=== PATIENT | female | born 1970 | race Caucasian/White ===

== ENCOUNTER → 2019-12-25 14:28 | Outpatient (CLI) | payer MEDICAID, SELFPAY ==
[2019-12-24 13:28] VITALS: BMI 26.4
--- NOTE | 2019-12-25 14:38 | MRI_ITS ---
STUDY: MRI BRAIN WITH AND WITHOUT CONTRAST REASON FOR EXAM: Female, 49 years old. new daily persistent headaches R occipital area, small cell lung ca TECHNIQUE: Standardized multiplanar fat and water weighted pulse sequences were obtained. IV 15 cc dotarem was administered for the contrast portion of the examination. COMPARISON: None. FINDINGS: There is mild cerebral atrophy with widening of the extra-axial spaces and ventricular dilatation. There are multiple white matter hyperintensities, distributed throughout the deep white matter tracts of the cerebral hemispheres, consistent with moderate chronic white matter ischemic changes. There is no evidence for recent intracranial ischemia or other cause of cytotoxic edema on diffusion weighted imaging (DWI). Normal T2* images of the brain without demonstrated susceptibility artifact. There is no demonstrated hemosiderin stain. Normal bilateral basal ganglia. Normal thalami. There is no extra-axial fluid accumulation. Normal flow voids within the major intracranial circulation suggesting patency by spin echo criteria. Normal venous enhancement. There is no enhancing intra-axial or extra-axial abnormality. Normal sella turcica, pituitary gland, infundibular stalk, optic chiasm and hypothalamus. Normal tectal plate and pineal gland. Normal midbrain, mahsa and medulla. Normal cerebellum. Normal basal cisterns. Normal bilateral temporal bones. Normal bilateral internal auditory canals. No demonstrated orbital abnormality, within the constraints of a routine brain study. Normal visualized paranasal sinuses. Normal calvarium and skull base. Normal visualized soft tissue structures. Normal visualized upper cervical spine. MRI/Brain W/WO Contrast IMPRESSION: Involutional changes of the brain, as described above. Electronically Signed: Samson Iyer MD at 17:14 EDT Tel , Service support ,
== END ==
PROVIDERS: Referring Provider Internal Medicine Hematology & Oncology; Visit Provider Internal Medicine Hematology & Oncology
DX: C34.92 Malignant neoplasm of unspecified part of left bronchus or lung (principal); C77.9 Secondary and unspecified malignant neoplasm of lymph node, unspecified; G44.52 New daily persistent headache (NDPH)
CPT/HCPCS: 70553; A9575

== ENCOUNTER 2020-02-05 14:50 | Emergency (ER) | payer MEDICAID, SELFPAY ==
[2019-12-24 13:28] VITALS: BMI 26.4
[2020-02-05] VITALS (10 sets, daily range): BP systolic 104–136; BP diastolic 75–97; PULSE 91–127; RESP 18–28; TEMP 36.1–37; O2SAT 96–98; BMI 32.1
--- NOTE | 2020-02-05 15:15 | RAD_ITS ---
STUDY: X-RAY CHEST REASON FOR EXAM: Female, 49 years old. PT C/O SOB AND COUGH THAT STARTED 4-5 DAYS AGO. TECHNIQUE: AP portable COMPARISON: None. FINDINGS: There are patchy areas of increased density and interstitial thickening in the right lower lobe possibly due to atypical viral pneumonia.. There is loss of volume in left hemithorax which appears to be in part due to left pleural effusion and perihilar interstitial thickening possibly representing interstitial infiltrate or edema. Normal size heart. Normal mediastinum and susanne. Normal visualized pulmonary arteries. Normal visualized aortic arch and descending thoracic aorta. Normal visualized thoracic spine. Normal visualized ribs, clavicles, and shoulders. Nonspecific bowel distention likely representing ileus in the upper abdomen. RAD/Chest 1 View (Portable) IMPRESSION: Interstitial thickening with increased parenchymal density in the right lower lobe and to a lesser extent in the upper lobe possibly due to Covid 19 pneumonia. Clinical correlation is recommended in this regard Left pleural effusion and possible perihilar interstitial thickening CT would be helpful for further evaluation Electronically Signed: Solomon Wilkins MD at 16:55 EST , Service support ,
--- NOTE | 2020-02-05 15:16 | ED.VIS.GEN ---
History of Present Illness Chief Complaint: Shortness of Breath Narrative: This patient is a 49-year-old female who presents with shortness of breath and cough. She has been ill for about 4 to 5 days. She complains of productive cough. She states she feels rattling in the left side of her chest. She also complains of congestion and sore throat. She intermittently has chest pain although no chest pain currently. She does complain of muscle and joint aches especially in the neck and shoulder. She reports diarrhea. No abdominal pain nausea or vomiting. She has not had a fever. No known exposure to COVID-19. She does have a history of small cell lung cancer and underwent radiation and chemotherapy but has been in remission for 2 years. She denies any other medical history. She is a smoker. Past Medical History - Allergies and Home Meds Allergies/Adverse Reactions: Allergies No Known Allergies Allergy (Verified 02/05/20 14:51) Primary Care Physician: Care Physician,No Primary [Primary Care Provider] - Past Medical History: - - Small cell lung cancer, in remission Surgical History: noncontributory Smoking Status: Current every day smoker - Family History Maternal Family History: Family History (Last Reviewed 12/24/19 @ 12:55 by Evy Turcios) Mother Lung cancer Osteoarthritis Father Diabetes Family History: Reports: Unknown Paternal Family History: Family History (Last Reviewed 12/24/19 @ 12:55 by Evy Turcios) Mother Lung cancer Osteoarthritis Father Diabetes Family History: Reports: Unknown Review of Systems All systems negative except as indicated General: Denies: Fever Eyes: Denies: Visual changes - bilaterally ENT: Denies: Bilateral ear pain Cardiovascular: Reports: Chest pain Respiratory: Reports: Dyspnea, Cough, Sputum Gastrointestinal: Reports: Diarrhea. Denies: Abdominal pain, Nausea, Vomiting Musculoskeletal: Reports: Myalgias, Arthralgias Skin: Denies: Rash Neurological: Reports: Headache Hematologic: Denies: Easy bruising, Easy bleeding Physical Exam Vital Signs/Narrative: Vital Signs Temp Pulse Resp BP Pulse Ox 02/05/20 14:51 97.0 F L 127 H 24 H 104/77 97 Inital Vital Signs reviewed: Yes General: Well nourished Head: Normocephalic Eyes: EOMI ENT: Moist mucous membranes Neck: Supple Cardiovascular: Regular rhythm, Tachycardia Respiratory: Wheezing, Decreased Air Movement, - - Tachypnea. Negative for: Rales Abdomen: Soft, Nontender, Nondistended Extremities: Nontender Skin: Normal color Neurological: Alert Psychological: Normal affect Diagnostic/Tx/Re-eval Impressions Chest X-Ray 02/05/20 15:15 IMPRESSION: Interstitial thickening with increased parenchymal density in the right lower lobe and to a lesser extent in the upper lobe possibly due to Covid 19 pneumonia. Clinical correlation is recommended in this regard Left pleural effusion and possible perihilar interstitial thickening CT would be helpful for further evaluation Electronically Signed: Solomon Wilkins MD at 16:55 EST , Service support , 02/05/20 15:15 Chest 1 View (Portable) [RAD] Stat 02/05/20 17:45 CTA Chest W/WO Contrast [CT] Stat 02/05/20 17:55 Mucosa - Nose Influenza Types A,B Direct FA (ELVER) - Final 02/05/20 15:55 Mucosa - Nose SARS-CoV-2 Antigen (Rapid) - Final Laboratory Results 02/05/20 02/05/20 02/05/20 15:50 15:50 15:50 WBC 8.8 RBC 4.52 Hgb 13.4 Hct 42.4 MCV 93.8 MCH 29.6 MCHC 31.6 L RDW Std Deviation 45.1 H RDW Coeff of Yoko 13.2 Plt Count 282 MPV 9.4 Immature Gran % (Auto) 0.300 Neut % (Auto) 70.7 H Lymph % (Auto) 20.8 [place] % (Auto) 6.1 Eos % (Auto) 1.8 Baso % (Auto) 0.3 Absolute Neuts (auto) 6.2 Absolute Lymphs (auto) 1.83 Nucleated RBC % 0 D-Dimer Quant (PE/DVT) 0.82 H* Sodium 140 Potassium 3.8 Chloride 110 H Carbon Dioxide 28.0 Anion Gap 2 L BUN 11 Creatinine 0.74 Estim Creat Clear Calc 69.39 Est GFR (MDRD) Af Amer 108 Est GFR (MDRD) Non-Af 89 BUN/Creatinine Ratio 15.0 Glucose 99 Lactic Acid Calcium 8.9 Total Bilirubin 0.30 AST 10 L ALT 17 Alkaline Phosphatase 147 H Total Protein 7.7 Albumin 3.8 Globulin 3.9 Albumin/Globulin Ratio 1.0 02/05/20 15:50 WBC RBC Hgb Hct MCV MCH MCHC RDW Std Deviation RDW Coeff of Yoko Plt Count MPV Immature Gran % (Auto) Neut % (Auto) Lymph % (Auto) [place] % (Auto) Eos % (Auto) Baso % (Auto) Absolute Neuts (auto) Absolute Lymphs (auto) Nucleated RBC % D-Dimer Quant (PE/DVT) Sodium Potassium Chloride Carbon Dioxide Anion Gap BUN Creatinine Estim Creat Clear Calc Est GFR (MDRD) Af Amer Est GFR (MDRD) Non-Af BUN/Creatinine Ratio Glucose Lactic Acid 0.9 Calcium Total Bilirubin AST ALT Alkaline Phosphatase Total Protein Albumin Globulin Albumin/Globulin Ratio - Medical Decision Making EKG shows sinus tachycardia at a rate of 104. Labs returned essentially unremarkable except for a D-dimer of 0.82. Chest x-ray shows findings concerning for possible bilateral pneumonia or COVID-19. The initial Covid antigen test returned negative. However given high clinical suspicion of Covid I did order a Covid PCR. Influenza was also negative. Due to elevated D-dimer and abnormal chest x-ray with radiology recommending consideration of CT patient was sent for a CTA of the chest. This is pending at the time of this dictation. Patient was given IV Rocephin and azithromycin. I was notified by nursing that patient refuses to wait any longer. I discussed with her that she has bilateral pneumonia and we have been unable to rule out COVID-19 or a pulmonary embolism. I recommended that she stay to complete evaluation and actually would recommend hospitalization. Patient refuses. She understands the risks of worsening of condition, organ failure, permanent disability, . Patient elected to sign out AGAINST MEDICAL ADVICE. We will still treat with oral antibiotics. She was advised that she needs to quarantine. ED Disposition - Plan for ED Patient: Disposition: Home or Assisted Living Diagnosis: Bilateral pneumonia, Elevated d-dimer Instructions: Pneumonia, D-Dimer Prescriptions: levoFLOXacin tablet [Levaquin] 500 mg PO DAILY #7 tab Prescription Printed Referrals: Care Physician,No Primary [Primary Care Provider] -
--- NOTE | 2020-02-05 15:18 | EKG12_ITS ---
Test Reason : SOB Blood Pressure : / mmHG Vent. Rate : 104 BPM Atrial Rate : 104 BPM P-R Int : 150 ms QRS Dur : 086 ms QT Int : 346 ms P-R-T Axes : 042 096 086 degrees QTc Int : 454 ms Sinus tachycardia Otherwise normal ECG Confirmed by LUZ MARIA LEE, MANJEET ([id number]), publications editor PEPPER GUTIERREZ ([id number]) on 02/07/2020 11:08:16 AM Referred By: ZACHERY Confirmed By:MANJEET LOERA MD
[2020-02-05] MEDS: Ipratropium/Albuterol Sulfate 3 ML AMPUL.NEB INHALATION (15:49)
[2020-02-05] MEDS: Albuterol 2.5 MG/3 ML VIAL.NEB. INHALATION (15:49)
[2020-02-05 16:07] LABS: Absolute Lymphocyte Count 1.83 X10^3/uL (0.83-4.51); Absolute Neutrophil Count 6.2 X10^3/uL (2.0-7.7); Basophil# 0.03 X10^3/uL; Basophil% 0.3 % (0-1); Eosinophil# 0.16 X10^3/uL; Eosinophils% 1.8 % (0-5); Hematocrit 42.4 % (37-47); Hemoglobin 13.4 g/dL (12.0-15.0); Lymphocyte # 1.83 X10^3/ul (4.0); Lymphocyte % 20.8 % (19-41); Mean Corp Hgb Conc 31.6 g/dL (32-36); Mean Corpuscular Hgb 29.6 pg (27.0-32.0); Mean Corpuscular Volume 93.8 fL (81-99); Mean Platelet Vol. 9.4 fl (6.2-12.0); Monocyte# 0.54 X10^3/uL; Monocyte% 6.1 % (0-10); NRBC Flagged by Analyzer 0 % (0-5); Neutrophil # 6.21 X10^3/uL (2.7-7.7); Neutrophil % 70.7 % (47-70); Platelet Count 282 K/mm3 (150-450); RBC Distribution Width CV 13.2 % (11.6-14.6); RBC Distribution Width SD 45.1 fl (35.1-43.9); Red Blood Count 4.52 M/mm3 (4.2-5.4); White Blood Count 8.8 K/mm3 (4.4-11.0)
[2020-02-05 16:24] LABS: AST(SGOT) 10 U/L (15-37); Alanine Aminotransfer ALT/SGPT 17 U/L (13-56); Albumin, Serum 3.8 g/dL (3.2-5.0); Alkaline Phosphatase 147 U/L (45-117); Anion Gap 2 (5-15); BUN 11 mg/dL (7-18); Calcium,Total 8.9 mg/dL (8.5-10.1); Chloride 110 mmol/L (98-107); Creatinine, Serum 0.74 mg/dL (0.55-1.02); EST Glomerular Filtration Rate 89 mL/min (>60); Est Glom Filt Rate - Afr Amer 108 mL/min (>60); Estimated Creatinine Clearance 69.39 ml/min; Globulin 3.9 g/dL (2.2-4.2); Glucose 99 mg/dL (74-106); Potassium 3.8 mmol/L (3.5-5.1); Protein, Total 7.7 g/dL (6.4-8.2); Sodium Level 140 mmol/L (136-145)
[2020-02-05 16:43] LABS: Lactic Acid 0.9 mmol/L (0.4-1.9)
[2020-02-05 17:39] LABS: D-Dimer Quantitative (DVT/PE) 0.82 FEU/ug/m (0.27-0.49)
--- NOTE | 2020-02-05 17:45 | CT_ITS ---
STUDY: CTA CHEST REASON FOR EXAM: Female, 49 years old. SOB and cough x 5 days, COVID, hx small cell lung cancer, with radiation and amp; chemotherapy. RADIATION DOSAGE (If Supplied By Facility): CTDIvol = ( 10.07 ) mGy, DLP = ( 310.73 ) mGycm TECHNIQUE: The examination was performed with the intravenous administration of IV 100mL Isovue-370. Post-processing of the angiographic images was performed, with multiplanar reformation and 3D reconstruction. Individualized dose optimization techniques were used for this CT. COMPARISON: None. FINDINGS: Normal enhancement of the main pulmonary artery and right and left pulmonary arteries. Normal enhancement of the bilateral peripheral pulmonary arteries. There is no demonstrated pulmonary embolism. Normal thoracic aorta and visualized great vessels. There is no demonstrated aortic dissection. Normal heart and pericardium. Normal mediastinum. Normal hilar regions. Normal visualized trachea and bronchi. There is volume loss in the left hemithorax with left upper lobe consolidation and pleural effusion, possibly loculated. Mild patchy groundglass densities most significant in the right lung base. Normal pleura. Normal chest wall structures. Normal osseous structures. Normal visualized upper abdomen. CT/CTA Chest W/WO Contrast IMPRESSION: No demonstrated pulmonary embolism or arterial dissection. There is volume loss in the left hemithorax with left upper lobe consolidation and pleural effusion, possibly loculated. Mild patchy groundglass densities most significant in the right lung base. Electronically Signed: Gonzalo Gould DO at 20:47 EST Tel [phone], Service support ,
[2020-02-05] MEDS: Ceftriaxone 1 GM/50 ML BAG IV (18:21)
== END 2020-02-05 19:21 | disposition left against medical advice (07) ==
PROVIDERS: Emergency Provider Emergency Medicine
DX: J18.9 Pneumonia, unspecified organism (principal); R79.89 Other specified abnormal findings of blood chemistry; R19.7 Diarrhea, unspecified; F17.200 Nicotine dependence, unspecified, uncomplicated; Z85.118 Personal history of other malignant neoplasm of bronchus and lung; Z92.3 Personal history of irradiation; Z92.21 Personal history of antineoplastic chemotherapy
CPT/HCPCS: 71045; 71275; 80053; 83605; 85025; 85379; 87040; 87426; 87635; 87804; 93005; 94640; 96365; 99285; J7050; Q9967; A4216; U0002

== ENCOUNTER 2020-02-07 19:18 | Emergency (ER) | payer MEDICAID, SELFPAY ==
[2020-02-05 14:51] VITALS: BMI 32.1
[2020-02-07 19:19] VITALS: BP 148/103; PULSE 122; RESP 24; TEMP 36.6; O2SAT 97; BMI 32.1
--- NOTE | 2020-02-07 19:36 | EKG12_ITS ---
Test Reason : SOB Blood Pressure : / mmHG Vent. Rate : 107 BPM Atrial Rate : 107 BPM P-R Int : 156 ms QRS Dur : 084 ms QT Int : 350 ms P-R-T Axes : 039 101 077 degrees QTc Int : 467 ms Sinus tachycardia Rightward axis Borderline ECG Confirmed by LUZ MARIA LEE, MANJEET ([id number]), publication editor PEPPER GUTIERREZ ([id number]) on 02/11/2020 9:11:35 AM Referred By: KATERIN AJ Confirmed By:MANJEET LOERA MD
[2020-02-07 20:04] LABS: Absolute Lymphocyte Count 1.88 X10^3/uL (0.83-4.51); Absolute Neutrophil Count 6.8 X10^3/uL (2.0-7.7); Basophil# 0.03 X10^3/uL; Basophil% 0.3 % (0-1); Eosinophils% 2.1 % (0-5); Hematocrit 40.1 % (37-47); Hemoglobin 13.2 g/dL (12.0-15.0); Lymphocyte # 1.88 X10^3/ul (4.0); Lymphocyte % 19.7 % (19-41); Mean Corp Hgb Conc 32.9 g/dL (32-36); Mean Corpuscular Volume 91.1 fL (81-99); Mean Platelet Vol. 9.6 fl (6.2-12.0); Monocyte# 0.58 X10^3/uL; Monocyte% 6.1 % (0-10); NRBC Flagged by Analyzer 0 % (0-5); Neutrophil # 6.82 X10^3/uL (2.7-7.7); Neutrophil % 71.5 % (47-70); Platelet Count 279 K/mm3 (150-450); RBC Distribution Width CV 13.1 % (11.6-14.6); RBC Distribution Width SD 43.8 fl (35.1-43.9); White Blood Count 9.5 K/mm3 (4.4-11.0)
[2020-02-07 20:07] VITALS: PULSE 106; RESP 16
--- NOTE | 2020-02-07 20:10 | RAD_ITS ---
STUDY: X-RAY CHEST REASON FOR EXAM: Female, 49 years old. COMPLAINS OF WORSENING DYSPNEA, COUGH. HERE 02/04 FOR SAME, DIAGNOSED WITH BILATERAL PNEUMONIA, SIGNED OUT AMA PER PT. HX OF SMALL CELL LUNG CA, IN REMISSION TECHNIQUE: 1 view COMPARISON: Prior chest radiograph of 02/05/[address] of 02/05/2020 FINDINGS: The right lung remains generally hyperexpanded without infiltrates visible on chest radiography. Minimal ground glass infiltrates were present on chest CT of February 05. Stable findings on the left with collapse and consolidation of the left upper lobe and general retraction of the left lower lobe without new consolidation. Negative for pleural effusion. Cardiac borders are obscured. Normal right hilum. Normal right pulmonary arteries. Normal visualized aortic arch and descending thoracic aorta. Normal visualized thoracic spine. Normal visualized ribs, clavicles, and shoulders. There is no demonstrated abnormality of the visualized soft tissue structures of the upper abdomen. RAD/Chest 1 View (Portable) IMPRESSION: Stable appearance of the chest. Hyperexpansion of the right lung without visible infiltrates on chest radiography. Note that small groundglass infiltrates were demonstrated on prior CT exam. Stable findings on the left with collapse and consolidation of left upper lobe and retraction of the left lower lobe without new infiltrates. Negative for substantial pleural effusion. Electronically Signed: Kathia Gonzalez MD at 20:49 EST , Service support ,
[2020-02-07] MEDS: 0.9% Normal Saline 1,000 ML 150 ML IV (20:12)
[2020-02-07] MEDS: MethylPREDNISolone 125 MG/2 ML Vial IV (20:12)
[2020-02-07 20:30] LABS: Anion Gap 6 (5-15); BUN 21 mg/dL (7-18); BUN/Creat Ratio 22.3 RATIO (10-20); Calcium,Total 9.2 mg/dL (8.5-10.1); Chloride 111 mmol/L (98-107); Creatinine, Serum 0.94 mg/dL (0.55-1.02); EST Glomerular Filtration Rate 67 mL/min (>60); Est Glom Filt Rate - Afr Amer 81 mL/min (>60); Estimated Creatinine Clearance 54.63 ml/min; Glucose 99 mg/dL (74-106); Potassium 3.6 mmol/L (3.5-5.1); Sodium Level 141 mmol/L (136-145)
[2020-02-07 20:33] LABS: Lactic Acid 0.9 mmol/L (0.4-1.9)
[2020-02-07 20:59] VITALS: BP 118/89; PULSE 111; RESP 24; TEMP 36.6; O2SAT 95
--- NOTE | 2020-02-07 21:00 | ED.DCSUM_ITS ---
- ER Visit Summary Date of Service: 02/07/20 Chief Complaint: [Shortness of breath] History of Present Illness: The patient is a 49 F [presents to the emergency department complaint shortness of breath that started out a week ago. Patient had a cough and some sputum production. She was seen in the ER 2 days ago and had significant work-up and was diagnosed with bilateral pneumonia and was recommended admission. Patient refused admission and signed out AMA. Patient was started on antibiotics for home. She apparently also had a CTA of the chest to rule out PE however she left prior to her results returning. Patient states that overall she is feeling improved however she was really concerned that she might have a blood clot and so she returned back to the emergency department. She denies any fever recently. She does complain of cough with some sputum but she states the sputum is become more clear. Patient has history of prior lung cancer as well as emphysema and history of coronary artery disease. Patient also had COVID-19 testing initially she had the rapid test that was negative fol lowed by the PCR test that was also -2 days ago.] No COVID-19 exposures. Physical Examination: [HEENT-PERRLA, EOMI. Cranial nerves II through XII grossly intact. TMs clear. Mucous membranes moist. No adenopathy. Cardiovascular-regular with mild tachycardia, without murmur or ectopy Lungs-good aeration bilaterally. Patient has some pain expiratory wheezes. She has mild tachypnea. No accessory muscle use or retractions. No conversational dyspnea. Abdomen-normoactive bowel sounds, soft, nontender, no rebound or rigidity, no peritoneal signs. Extremities-intact ?4, normal range of motion, normal pulses, atraumatic] Test Results: [EKG obtained arrival shows sinus rhythm with a ventricular rate of 107 bpm. CBC with it showing a 9.5, hemoglobin 13, hematocrit 40, placed 279. Chemistries unremarkable. Troponin was less than 0.015. Lactate was normal at 0.9. Chest x-ray obtained and read by radiology as no interval change when compared with chest x-ray from 2 days ago. No significant infiltrates noted in the right lung and she did have some collapse of the left lung with questionable infiltrate in left upper lobe.] Emergency Department Course and Treatment: [Initially on arrival patient had an IV line established and patient was given albuterol MDI. Patient was given Solu-Medrol 125 mg IV.] Treatment Plan: [At this point patient is feeling improved overall her main concern was that she might have a pulmonary embolism. I do not feel that patient is septic and do not feel she needs to be admitted at this time. She is comfortable with going home and returning if her symptoms should worsen in any way. Patient to follow-up with her primary care physician within next 3 to 5 days.] Disposition: [Discharged home in stable condition] Impression: [Pneumonia] This note was generated with Stage[employer] dictation software. It may contain incorrect words, spelling, and punctuation that were not noted in review of the chart prior to signing ED Disposition - Plan for ED Patient: Referrals: Care Physician,No Primary [Primary Care Provider] -
--- NOTE | 2020-02-07 21:06 | ED.DEP ---
ED Disposition - Plan for ED Patient: Instructions: Treating Pneumonia, ED Upper Resp Infec Abx Tx Prescriptions: Benzonatate [Tessalon Perle] 200 mg PO TID PRN PRN #20 cap PRN Reason: Cough Prescription Printed Referrals: Care Physician,No Primary [Primary Care Provider] - Jordan Aguilera MD [STAFF PHYSICIAN] - 3-5 Days
[2020-02-07 21:18] VITALS: BP 122/86; PULSE 110; RESP 22; O2SAT 96
== END 2020-02-07 21:19 | disposition home or self-care (01) ==
LOC: ED 19:41
PROVIDERS: Emergency Provider Emergency Medicine
DX: J18.9 Pneumonia, unspecified organism (principal); J43.9 Emphysema, unspecified; I25.10 Atherosclerotic heart disease of native coronary artery without angina pectoris; Z72.0 Tobacco use; Z79.899 Other long term (current) drug therapy; Z85.118 Personal history of other malignant neoplasm of bronchus and lung
CPT/HCPCS: 71045; 80048; 83605; 84484; 85025; 87040; 93005; 96361; 96374; 99285; J7030; A4216

== ENCOUNTER → 2020-03-03 09:52 | Outpatient (CLI) | payer MEDICAID, SELFPAY ==
[2019-12-23 08:42] VITALS: BMI 32.3
--- NOTE | 2020-01-21 09:00 | HP_ITS ---
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: No Is patient in pain?: No Allergies No Known Allergies Allergy (Verified 12/23/19 08:44) Medications cholecalciferol (vitamin D3) 50 mcg (2,000 unit) capsule 50 mcg PO DAILY 12/23/19 [History Confirmed 12/23/19] [facility] Medical History Small cell lung cancer (Acute) Mass of left lung (Acute) Cocaine abuse (Chronic) Depression (Chronic) Shoulder strain (Chronic) NSTEMI (non-ST elevation myocardial infarction) (Acute) Non-ST elevation myocardial infarction (NSTEMI) greater than eight weeks ago (Acute) Acute renal failure (ARF) (Acute) Rhabdomyolysis (Acute) Critical lower limb ischemia (Suspected) Anoxic cerebral edema (Suspected) Shock liver (Acute) Pancreatitis, acute (Acute) Unresponsiveness (Acute) Difficulty breathing (Acute) Cancer of left lung (Chronic) Regional lymph node metastasis present (Chronic) Emphysema lung (Chronic) Surgical History s/p port placement (Acute) History of tonsillectomy and adenoidectomy (Acute) History of surgery on right wrist (Acute) Hx of laparoscopy (Acute) Hx of lumbar discectomy (Acute) History of left below knee amputation (Acute) H/O tubal ligation (Acute) Hx of colonoscopy (Acute) Family History Mother Lung cancer Osteoarthritis Father Diabetes Social History (Updated 12/23/19 @ 08:[address] Wang Rizzo MD) Smoking Status: Light Smoker (<10/day) alcohol intake: never substance use type: does not use caffeine: Yes what type of physical activity do you participate in: none frequency: does not exercise HPI HPI HPI: ZEESHAN PULIDO, is a 49 F who presents to the office today for HPI HPI Surgical H&P: Yes HPI: ZEESHAN PULIDO, is a 49 F who presents to the office today for Port removal and screening colonoscopy. The patient had a port placed in 2018 for lung cancer and is no longer using it and would like it removed it. It is in the right chest utilizing right IJ. Patient also reports her last colonoscopy was in 2004. She is not having any abdominal pain or blood in the stool. She has no family history of colon cancer. ROS General General: No weight change, appetite, fatigue, colon cancer, breast cancer or weakness HEENT HEENT: No difficulty swallowing, eye injury, eye surgery, swollen glands or hoarseness Skin Skin: No rash or changing moles Breast Breast: No left breast lump, right breast lump, nipple discharge, breast pain, abnormal mammogram, abnormal US or breast enlargement Musc Musculoskeletal: Yes joint pain; no back problems, arthritis, rheumatoid arthritis or gout Cardio Cardiovascular: No murmur, pacemaker, heart disease, atrial fibrillation, high blood pressure, heart attack, heart stent, palpitations, shortness of breat with exertion or chest pain Psych Psychiatric: Yes anxiety; no depression or hearing voices Resp Respiratory: Yes shortness of breath, No sleep apnea, No cough, No COPD, No asthma, No emphysema, No wheezing Gastro Gastrointestinal: No abdominal pain, No nausea or vomiting, No diarrhea, No constipation, No blood in stool, No acid reflux, No hemorrhoids, No ulcers, No gallbladder problem, No black,tarry stools Horace Hematologic: No blood thinners, No blood disorders, No bleeding, No anemia, No blood clots Neuro Neurologic: No system reviewed and no additional complaints, except as docu, No as per HPI, No abnormal walking, No abnormal hearing, No abnormal movements, No abnormal speech, No behavioral changes, No burning sensations, No confusion, No seizure-like activity, No unsteadiness, No dizziness, No localized weakness, No frequent falls, No headache(s), No lack of coordination, No loss of vision, No memory loss, No numbness, No other visual disturbances, No radiating pain, No restless legs, No sensory deficit, No fainting, No tingling, No tremor(s), No weakness, No other Exam Const General: cooperative Orientation: alert, oriented x3 Chest Breast Palpation: No nipple discharge Resp Effort & Inspection: normal respiratory effort Auscultation: clear to auscultation bilaterally Cardio Rate: regular rate Rhythm: regular rhythm Heart Sounds: no murmurs GI Inspection: non-distended Palpation: soft, nontender Assessment & Plan Problems 1. Encounter for adjustment or management of vascular access device Z45.2 2. Screen for colon cancer Z12.11 Plan I discussed port placement with the patient in detail. I will perform the procedure in the office. I discussed the risks including but not limited to bleeding, infection. Patient understands the risks and is willing to proceed with port removal. I will have her schedule a procedure time. Patient is overdue for colonoscopy for screening purposes. Her last colonoscopy was in 2004. She denies any abdominal pain or family history of colon cancer. Plan for screening colonoscopy. I explained endoscopy in detail to the patient. I explained the risks including but not limited to stroke or heart attack with anesthesia, perforation of the GI tract, bleeding, infection. I explained that any of these could necessitate further emergency surgery. The patient understands and all questions were answered sufficiently. The patient wishes to proceed with procedure. We discussed the current risks associated with COVID-19. While it is understood that there is a community spread of COVID-19, the risk of kareen COVID-19 while at [facility] ([facility]) is very low; however, the risk cannot be completely mitigated because of the community spread of the disease. We discussed in detail the risk of exposure to and/or potential harm posed by the COVID-19 virus with having a surgery/procedure at this time versus the risk of delaying the surgery/procedure. It is not possible to know either the risk of delaying the surgery or procedure or chance of getting an infection with perfect accuracy, but a joint decision was made to proceed at this time with the scheduled surgery/procedure as indicated on the consent form. Patient was notified that we will need to comply with any screening or testing [facility] wishes to perform or that surgery may be delayed for any positive results. Wang Rizzo MD Pager: [facility] [address] [place] [address], [address] [place] [address] Office: Orders Orders: Colonoscopy Today Z12.11 Coding Level of Care Code Off vis,new,level 3 Diagnoses Encounter for adjustment or management of vascular access device Z45.2 Screen for colon cancer Z12.11
[2020-02-07 19:19] VITALS: BMI 32.1
== END ==
PROVIDERS: Visit Provider Surgery
DX: Z00.00 Encounter for general adult medical examination without abnormal findings (principal)

== ENCOUNTER → 2020-03-18 12:19 | Outpatient (CLI) | payer MEDICAID, SELFPAY ==
--- NOTE | 2020-03-18 12:23 | BI_ITS ---
MAMMOGRAPHY - BILATERAL SCREENING REASON FOR EXAM: Female, 49 years old. Routine annual screening examination. PERTINENT HISTORY: Non-contributory. TECHNIQUE: Digital bilateral breast mago (3D mammographic acquisition) in the CC and MLO projections. 2-D mediolateral oblique (MLO) and craniocaudad (CC) views of both breasts were obtained. CAD: Full Field Digital Mammography with Computer Added Detection was performed. COMPARISON: None. Baseline examination. FINDINGS: Breast Composition: The breasts are heterogeneously dense, which may obscure small masses. There are no dominant masses or suspicious calcifications. Benign appearing bilateral axillary lymph nodes. No other significant abnormalities are identified. BI/SCREEN MAMM (CAD) W/MAGO BILAT IMPRESSION: Negative screening mammogram. Yearly followup mammogram recommended. (A) ASSESSMENT CATEGORY: BIRADS Category 1: Negative. A letter regarding these results will be sent to the patient by the facility within 30 days. Approximately 10% of breast cancers are not detected by mammography. A normal mammogram should not delay biopsy of a clinically suspicious abnormality. [id number] Electronically Signed: Vance Montanez, at 13:52 EST , Service support ,
--- NOTE | 2020-03-18 12:59 | CT_ITS ---
STUDY: CT CHEST WITH CONTRAST REASON FOR EXAM: Female, 49 years old. FOLLOW UP ON SMALL CELL LUNG CA RADIATION DOSAGE (If Supplied By Facility): CTDIvol = ( 13.96 ) mGy, DLP = ( 1042.53 ) mGycm TECHNIQUE: Transaxial imaging was performed following intravenous administration of IV 100mL Isovue-300. Individualized dose optimization techniques were used for this CT. COMPARISON: 02/05/2020 FINDINGS: Mild emphysematous changes. No change in left upper lobe the scarring, bronchiectasis, and pleural thickening. There is no demonstrated pleural abnormality. Normal heart and pericardium. Normal mediastinum. Normal hilar regions. Normal enhanced pulmonary arteries. Normal aorta arch and descending thoracic aorta. Normal osseous structures. There is no demonstrated abnormality of the visualized upper abdomen. CT/Chest WITH Contrast IMPRESSION: No change in left upper lobe volume loss, scarring, and bronchiectasis consistent with treated tumor. Electronically Signed: Samson Iyer MD at 14:58 EST Tel , Service support ,
[2020-03-18 13:20] LABS: CREATININE FINGERSTICK 1.1 mg/dL (0.55-1.02)
--- NOTE | 2020-03-18 13:27 | CT_ITS ---
STUDY: CT ABDOMEN WITH CONTRAST REASON FOR EXAM: Female, 49 years old. FOLLOW UP ON SMALL CELL LUNG CA RADIATION DOSAGE (If Supplied By Facility): CTDIvol = ( 13.96 ) mGy, DLP = ( 1042.53 ) mGycm TECHNIQUE: Transaxial images were obtained post I.V. administration of IV 100mL Isovue-300, and without oral contrast. Sagittal and coronal images were reconstructed. Individualized dose optimization techniques were used for this CT. COMPARISON: 05/14/2011 FINDINGS: The visualized lung bases are unremarkable. The visualized portions of the heart are within normal limits. No change in subcentimeter cyst in the anterior segment the right lobe of the liver. Normal gallbladder and extrahepatic biliary system. Normal spleen. Normal pancreas. Normal bilateral adrenal glands. Normal right kidney. Normal left kidney. Normal visualized stomach. Normal small intestine. Normal colon. The appendix is visualized and appears normal. Normal abdominal aorta. Normal inferior vena cava. Normal retroperitoneum. Normal abdominal wall. Normal osseous structures. CT/Abdomen WITH IV Contrast IMPRESSION: Normal enhanced CT of the abdomen. No CT evidence of metastatic small cell lung cancer. Electronically Signed: Samson Iyer MD at 14:20 EST Tel , Service support ,
== END ==
PROVIDERS: PCP Family Medicine; Referring Provider Internal Medicine Hematology & Oncology; Visit Provider Internal Medicine Hematology & Oncology
DX: Z12.31 Encounter for screening mammogram for malignant neoplasm of breast (principal); C34.90 Malignant neoplasm of unspecified part of unspecified bronchus or lung; C34.92 Malignant neoplasm of unspecified part of left bronchus or lung; C77.9 Secondary and unspecified malignant neoplasm of lymph node, unspecified
CPT/HCPCS: 71260; 74160; 77063; 77067; Q9967

== ENCOUNTER → 2020-07-16 08:34 | Outpatient (CLI) | payer MEDICAID, SELFPAY ==
[2020-03-25 13:18] VITALS: BMI 33.0
--- NOTE | 2020-07-17 13:59 | PFTCOMP ---
INTRODUCTION: The patient is a 50-year-old female that presents for pulmonary function studies secondary to a diagnosis of emphysema. Respiratory therapy reports good patient effort. Bronchodilators were used during testing. INTERPRETATION: Forced expiration spirometry demonstrates the presence of a moderately severe large airways obstructive ventilatory defect. There was no significant response to aerosolized bronchodilators. Spirograms are of fair quality but do not plateau indicating slow emptying of the lungs. Body plethysmography was performed and reveals a decreased TLC to 3.42 L, 78% of predicted, indicative of a mild restrictive ventilatory impairment. Diffusing capacity by single breath CO is reduced at 46% of predicted. IMPRESSION: Irreversible moderately severe mixed ventilatory defect with symmetric reduction in diffusing capacity.
== END ==
PROVIDERS: PCP Family Medicine; Referring Provider Family Medicine; Visit Provider Family Medicine
DX: J43.9 Emphysema, unspecified (principal)
CPT/HCPCS: 94060; 94726; 94729

== ENCOUNTER 2020-07-27 10:52 | Emergency (ER) | payer MEDICAID, SELFPAY ==
[2020-07-27 06:26] VITALS: BMI 33.0
[2020-07-27 10:53] VITALS: BP 129/77; PULSE 99; RESP 29; TEMP 37; O2SAT 97; BMI 31.9
[2020-07-27 10:59] VITALS: BMI 31.9
--- NOTE | 2020-07-27 11:12 | RAD_ITS ---
STUDY: X-RAY CHEST REASON FOR EXAM: Female, 50 years old. Fever and cough , history of lung cancer TECHNIQUE: Single AP portable view of the chest. COMPARISON: 02/07/2020 FINDINGS: EKG leads overlie the chest. Stable postsurgical changes in the left hemithorax with persistent likely postsurgical opacification in the right apex, and persistent opacification in the visualized left lung. The right lung remains clear and well expanded without evidence of a superimposed process. Normal size heart. Normal mediastinum and susanne. Normal visualized pulmonary arteries. Normal visualized aortic arch and descending thoracic aorta. Normal visualized thoracic spine. Normal visualized ribs, clavicles, and shoulders. There is no demonstrated abnormality of the visualized soft tissue structures of the upper abdomen. RAD/Chest 1 View (Portable) IMPRESSION: No acute pulmonary process, no interval change Electronically Signed: Clyde Conde MD at 12:25 EDT , Service support ,
--- NOTE | 2020-07-27 11:13 | EKG12_ITS ---
Test Reason : NEURO Blood Pressure : / mmHG Vent. Rate : 091 BPM Atrial Rate : 091 BPM P-R Int : 146 ms QRS Dur : 092 ms QT Int : 380 ms P-R-T Axes : 063 091 079 degrees QTc Int : 467 ms Normal sinus rhythm Rightward axis Borderline ECG Confirmed by FREEMAN LEE, ANGELO ([id number]), website/blog editor PEPPER GUTIERREZ ([id number]) on 07/28/2020 10:07:53 AM Referred By: SHILA Confirmed By:ANGELO MILLARD MD
--- NOTE | 2020-07-27 11:15 | EDS_ITS ---
HPI History of Present Illness Chief Complaint: Neuro S/Sx Narrative Narrative: Patient is a 50-year-old female who presents to the emergency department for right-sided face numbness, off-balance sensation and issues speaking at times. She states that her initial symptoms started sometime yesterday but she is not sure what time. She had a similar episode a few months back that resolved on its own. She denies a headache but states that she just has a funny sensation in her head. No vision changes. No weakness or loss of sensation in her extremities. She does have a history of lung cancer in remission status post chemo and radiation. She states they also did treatment on her head but this was prophylactic. She denies any chest pain or palpitations. She does have chronic shortness of breath that is no worse than normal. She does have a chronic cough. She is a current every day smoker. She does have a history of left leg amputation status post rhabdo after an overdose. [facility] Medical History (Updated 07/27/20 @ 13:[address] Wally Daniels DO) Acute renal failure (ARF) Anoxic cerebral edema Cancer of left lung Cocaine abuse Critical lower limb ischemia Depression Difficulty breathing Emphysema lung Mass of left lung Non-ST elevation myocardial infarction (NSTEMI) greater than eight weeks ago NSTEMI (non-ST elevation myocardial infarction) Pancreatitis, acute Regional lymph node metastasis present Rhabdomyolysis Shock liver Shoulder strain Small cell lung cancer Unresponsiveness Home Medications Diltiazem Hcl [Diltiazem 12hr Er] 60 mg PO DAILY 03/25/20 [History Last Taken Unknown] albuterol sulfate 1 puff IH BID 03/25/20 [History Last Taken Unknown] amitriptyline 25 - 75 mg PO QHS 03/25/20 [History Last Taken Unknown] budesonide 1 puff INHALATION BID 03/25/20 [History Last Taken Unknown] budesonide-formoterol 2 puff INHALATION BID 03/25/20 [History Last Taken Unknown] ipratropium bromide 1 spray NASAL BID 03/25/20 [History Last Taken Unknown] Allergy/AdvReac Type Severity Reaction Status Date / Time No Known Allergies Allergy Verified 07/27/20 10:53 Family History Mother Lung cancer Osteoarthritis Father Diabetes Surgical History H/O tubal ligation History of left below knee amputation History of surgery on right wrist History of tonsillectomy and adenoidectomy Hx of colonoscopy Hx of laparoscopy Hx of lumbar discectomy s/p port placement Social History Smoking Status: Current every day smoker alcohol intake: never substance use type: does not use caffeine: Yes what type of physical activity do you participate in: none frequency: does not exercise ROS ROS ED Constitutional Constitutional ED: Denies chills or fever(s) Eyes Eyes: Denies change in vision ENT ENT ED: Denies epistaxis or rhinorrhea Cardiovascular Cardiovascular: Denies chest pain or palpitations Respiratory/Chest Respiratory/Chest: Reports cough, dyspnea and dyspnea on exertion Gastrointestinal Gastrointestinal: Denies abdominal pain, diarrhea, nausea or vomiting Genitourinary Genitourinary ED: Denies dysuria, hematuria or urinary frequency Musculoskeletal Musculoskeletal: Denies back pain or neck pain Integumentary Denies rash Neurologic Neurologic: Reports paresthesias; Denies dizziness, headache(s) or weakness EXAM Physical Exam Const Vital Signs: 07/27/20 10:53 07/27/20 11:46 07/27/20 12:41 Temperature 98.6 F Temperature Source Temporal Pulse Rate 99 93 78 Respiratory Rate 29 H 21 H 25 H Blood Pressure 129/77 H 128/82 H 127/86 H Blood Pressure Mean 94 97 99 Pulse Ox 97 99 96 Oxygen Delivery Method Room Air Room Air Room Air 07/27/20 13:07 07/27/20 13:29 Temperature Temperature Source Pulse Rate 81 86 Respiratory Rate 24 H 18 Blood Pressure 124/76 H 136/93 H Blood Pressure Mean 92 Pulse Ox 95 96 Oxygen Delivery Method Room Air Positive well nourished and well developed General Appearance ED: well developed and NAD HEENT Reports normocephalic, head/scalp atraumatic and moist mucous membranes Eyes PERRL and EOMs intact bilaterally Neck no lymphadenopathy and supple General: Negative for tenderness Chest Wall inspection of chest normal Resp normal respiratory effort and clear to auscultation bilaterally Auscultation: Negative for rales, rhonchi or wheezes Cardio regular rate, regular rhythm and no murmurs GI normal to inspection, nondistended, normoactive bowel sounds and non-tender Palpation: soft; Negative for guarding or rebound tenderness present Back/Spine no CVA tenderness Extremity normal to inspection General Extremety ED: Negative for edema or tenderness General Extremity: Negative for edema Neuro oriented x3, CN's II-XII intact bilaterally and no sensory deficits noted Neuro Narrative: NIH score of 0. No focal deficits appreciated. No discoordination. Sensorium / Orientation: alert Motor Exam: strength 5/5 throughout Psych mental status grossly normal Skin no rashes or lesions noted MDM MDM MDM Narrative Medical decision making narrative: Patient presents to the ED for issues with speaking. She states that she tripped over her words. She feels right-sided facial numbness as well as her tongue. She also feels like she is off balance when ambulating. Upon arrival to the emergency department she has a NIH score of 0. Stroke alert was not called because last known well is unknown and it was likely greater than 24 hours ago. We will do work-up including CT imaging of the head and neck as well as basic lab work. Patient CT imaging did not reveal any acute finding. No evidence of mass, bleed, large vessel occlusion. Patient could have suffered TIA. I did recommend hospitalization but she is adamant about not staying in the hospital. She states that she just recently got out of group home and does not want to be confined again. She understands the risk associated going home and understands TIA can be a warning sign for a larger stroke which can be potentially life- threatening with significant morbidity and mortality. She understands accept these risk. She is going to call her PCP today for close follow-up. She understands that she will need an MRI as well. If she develops any worsening symptoms or changes her mind she can return to the emergency department anytime for further evaluation and management. This time she will be discharged home in stable condition. All questions were answered. Lab Data Labs: Laboratory Results - last 24 hr 07/27/20 07/27/20 11:00 11:00 WBC 8.3 RBC 4.51 Hgb 13.6 Hct 41.2 MCV 91.4 MCH 30.2 MCHC 33.0 RDW Std Deviation 46.5 H RDW Coeff of Yoko 13.7 Plt Count 276 MPV 9.5 Immature Gran % (Auto) 0.400 Neut % (Auto) 71.1 H Lymph % (Auto) 20.5 Hanson % (Auto) 5.8 Eos % (Auto) 1.8 Baso % (Auto) 0.4 Absolute Neuts (auto) 5.9 Absolute Lymphs (auto) 1.70 Nucleated RBC % 0 Sodium 142 Potassium 3.8 Chloride 109 H Carbon Dioxide 26.0 Anion Gap 7 BUN 11 Creatinine 0.81 Estim Creat Clear Calc 62.70 Est GFR (MDRD) Af Amer 96 Est GFR (MDRD) Non-Af 79 BUN/Creatinine Ratio 13.6 Glucose 115 H Calcium 8.7 Total Bilirubin 0.30 AST 14 L ALT 16 Alkaline Phosphatase 138 H Troponin I < 0.015 Total Protein 7.2 Albumin 3.6 Globulin 3.6 Albumin/Globulin Ratio 1.0 Radiography Diagnostic Testing: Radiology Impression Chest X-Ray 07/27/20 11:12 IMPRESSION: No acute pulmonary process, no interval change Electronically Signed: Clyde Conde MD at 12:25 EDT , Service support , Head/Neck CTA 07/27/20 12:00 IMPRESSION: Normal CTA Head and neck with contrast. Electronically Signed: Clyde Conde MD at 12:27 EDT , Service support , EKG Initial EKG: Comments: Rate of 91 bpm and normal sinus rhythm. Normal intervals. Right axis deviation. No significant ST elevations or depressions. No T wave abnormalities. Discharge Plan Triage Chief Complaint: Neuro S/Sx ED Provider: Wally Daniels Dx/Rx/DC Orders Clinical Impression: Stroke-like episode Instructions: ED TIA: Transient Ischemic Attack Prescriptions: No Action amitriptyline 50 MG tablet 25 - 75 mg PO QHS RF: 0 albuterol sulfate 1 PUFF inhaler 1 puff IH BID RF: 0 ipratropium bromide 1 SPRAY spray,non-aerosol 1 spray NASAL BID RF: 0 budesonide 1 PUFF inhaler 1 puff INHALATION BID RF: 0 budesonide-formoterol 1 INHALER inhaler 2 puff INHALATION BID RF: 0 Diltiazem Hcl [Diltiazem 12hr Er] 60 MG Cap.Er.12h 60 mg PO DAILY RF: 0 Primary Care Provider: Jordan Aguilera Referrals: Jordan Aguilera MD [Primary Care Provider] - 1 Day Disposition Disposition: Home, self care Discharge Date/Time: 07/27/20 13:30
[2020-07-27 11:22] LABS: Absolute Neutrophil Count 5.9 X10^3/uL (2.0-7.7); Basophil# 0.03 X10^3/uL; Basophil% 0.4 % (0-1); Eosinophil# 0.15 X10^3/uL; Eosinophils% 1.8 % (0-5); Hematocrit 41.2 % (37-47); Hemoglobin 13.6 g/dL (12.0-15.0); Lymphocyte % 20.5 % (19-41); Mean Corpuscular Hgb 30.2 pg (27.0-32.0); Mean Corpuscular Volume 91.4 fL (81-99); Mean Platelet Vol. 9.5 fl (6.2-12.0); Monocyte# 0.48 X10^3/uL; Monocyte% 5.8 % (0-10); NRBC Flagged by Analyzer 0 % (0-5); Neutrophil # 5.91 X10^3/uL (2.7-7.7); Neutrophil % 71.1 % (47-70); Platelet Count 276 K/mm3 (150-450); RBC Distribution Width CV 13.7 % (11.6-14.6); RBC Distribution Width SD 46.5 fl (35.1-43.9); Red Blood Count 4.51 M/mm3 (4.2-5.4); White Blood Count 8.3 K/mm3 (4.4-11.0)
[2020-07-27 11:39] LABS: AST(SGOT) 14 U/L (15-37); Alanine Aminotransfer ALT/SGPT 16 U/L (13-56); Albumin, Serum 3.6 g/dL (3.2-5.0); Alkaline Phosphatase 138 U/L (45-117); Anion Gap 7 (5-15); BUN 11 mg/dL (7-18); BUN/Creat Ratio 13.6 RATIO (10-20); Calcium,Total 8.7 mg/dL (8.5-10.1); Chloride 109 mmol/L (98-107); Creatinine, Serum 0.81 mg/dL (0.55-1.02); EST Glomerular Filtration Rate 79 mL/min (>60); Est Glom Filt Rate - Afr Amer 96 mL/min (>60); Globulin 3.6 g/dL (2.2-4.2); Glucose 115 mg/dL (74-106); Potassium 3.8 mmol/L (3.5-5.1); Protein, Total 7.2 g/dL (6.4-8.2); Sodium Level 142 mmol/L (136-145)
[2020-07-27 11:46] VITALS: BP 128/82; PULSE 93; RESP 21; O2SAT 99
--- NOTE | 2020-07-27 12:00 | CT_ITS ---
STUDY: CTA HEAD AND NECK WITH CONTRAST REASON FOR EXAM: Female, 50 years old. Speech issue, right face numb RADIATION DOSAGE (If Supplied By Facility): CTDIvol = ( 21.44 ) mGy, DLP = ( 1523.52 ) mGycm TECHNIQUE: CT angiography was performed with a multi-detector CT scanner. Data acquisition was obtained from the skull base through the vertex following intravenous administration of IV 100mL Isovue-370. MIP images were reconstructed from the axial data set. Post-processing of the angiographic images was performed, with multiplanar reformation and 3D reconstruction. Individualized dose optimization techniques were used for this CT. COMPARISON: No relevant priors. FINDINGS: Normal bilateral petrous carotid arteries. Normal right cavernous carotid artery with a normal supraclinoid bifurcation. Normal left cavernous carotid artery with a normal supraclinoid bifurcation. Normal right A1 segments of the anterior cerebral artery. Normal left A1 segments of the anterior cerebral artery. Normal intact anterior communicating artery (ACOM). Normal bilateral A2 segments of the anterior cerebral arteries. Normal right M1 and M2 segments of the middle cerebral arteries, with a normal M1 bifurcation. Normal left M1 and M2 segments of the middle cerebral arteries, with a normal M1 bifurcation. Normal right posterior communicating artery (PCOM). Normal left posterior communicating artery (PCOM). Normal bilateral vertebral arteries. Normal basilar artery with a normal basilar bifurcation. The visualized bilateral superior cerebellar (SCA) arteries are normal. Normal bilateral P1, P2 and visualized P3 segments of the posterior cerebral arteries. There is no demonstrated aneurysm of the [place]. There is no demonstrated abnormality of the visualized brain. AORTIC ARCH: Normal visualized aortic arch. Normal origins of the brachiocephalic, left common carotid, and left subclavian arteries. RIGHT CAROTID ARTERIES: Normal right common carotid artery (CCA). Normal right common carotid bulb. Normal origin of the right internal carotid (ICA) artery without a hemodynamically significant stenosis. Normal visualized cervical portion of the right internal carotid artery. Normal origin of the right external carotid artery (ECA). LEFT CAROTID ARTERIES: Normal left common carotid artery (CCA). Normal left common carotid bulb. Normal origin of the left internal carotid (ICA) artery without a hemodynamically significant stenosis. Normal visualized cervical portion of the left internal carotid artery. Normal origin of the left external carotid artery (ECA). VERTEBRAL ARTERIES: Normal bilateral vertebral arteries. There is no suspicious enhancing lesion, airway narrowing or deviation. Bony structures are unremarkable. CT/CTA Head AND Neck W/ Contrast IMPRESSION: Normal CTA Head and neck with contrast. Electronically Signed: Clyde Conde MD at 12:27 EDT , Service support ,
[2020-07-27 12:41] VITALS: BP 127/86; PULSE 78; RESP 25; O2SAT 96
[2020-07-27 13:07] VITALS: BP 124/76; PULSE 81; RESP 24; O2SAT 95
[2020-07-27 13:29] VITALS: BP 136/93; PULSE 86; RESP 18; O2SAT 96
== END 2020-07-27 13:30 | disposition home or self-care (01) ==
PROVIDERS: Emergency Provider Emergency Medicine; PCP Family Medicine
DX: G45.9 Transient cerebral ischemic attack, unspecified (principal); R20.0 Anesthesia of skin; J43.9 Emphysema, unspecified; F32.9 Major depressive disorder, single episode, unspecified; F17.200 Nicotine dependence, unspecified, uncomplicated; Z79.899 Other long term (current) drug therapy; I25.2 Old myocardial infarction; Z85.118 Personal history of other malignant neoplasm of bronchus and lung; Z92.3 Personal history of irradiation; Z92.21 Personal history of antineoplastic chemotherapy; Z89.512 Acquired absence of left leg below knee
CPT/HCPCS: 70496; 70498; 71045; 80048; 80053; 84484; 85025; 93005; 99283; Q9967; A4216

== ENCOUNTER → 2020-08-19 14:44 | Outpatient (CLI) | payer MEDICAID, SELFPAY ==
[2020-08-19 08:31] VITALS: BMI 30.8
[2020-08-19 18:02] LABS: AST(SGOT) 12 U/L (15-37); Alanine Aminotransfer ALT/SGPT 16 U/L (13-56); Albumin, Serum 3.5 g/dL (3.2-5.0); Alkaline Phosphatase 138 U/L (45-117); Anion Gap 7 (5-15); BUN 13 mg/dL (7-18); BUN/Creat Ratio 15.7 RATIO (10-20); CPK Total, Creatine Kinase 58 U/L (26-192); Calcium,Total 9.2 mg/dL (8.5-10.1); Chloride 108 mmol/L (98-107); Creatinine, Serum 0.83 mg/dL (0.55-1.02); EST Glomerular Filtration Rate 77 mL/min (>60); Est Glom Filt Rate - Afr Amer 94 mL/min (>60); Ferritin 41 ng/mL (8-252); Globulin 3.6 g/dL (2.2-4.2); Glucose 94 mg/dL (74-106); Potassium 4.1 mmol/L (3.5-5.1); Protein, Total 7.1 g/dL (6.4-8.2); Sodium Level 141 mmol/L (136-145); Thyroid Stim Hormone (TSH) 0.51 uIU/mL (0.358-3.74)
[2020-08-20 07:47] LABS: PTHIN 53.1 pg/mL (18.4-80.1)
== END ==
PROVIDERS: PCP Family Medicine; Referring Provider Family Medicine; Visit Provider Family Medicine
DX: R25.2 Cramp and spasm (principal)
CPT/HCPCS: 36415; 80053; 82550; 82728; 83735; 83970; 84443

== ENCOUNTER → 2020-10-01 12:51 | Outpatient (CLI) | payer MEDICAID, SELFPAY ==
[2020-03-25 13:18] VITALS: BMI 33.0
[2020-08-19 08:31] VITALS: BMI 30.8
--- NOTE | 2020-10-01 12:56 | CT_ITS ---
STUDY: CT CHEST T ABDOMEN WITH CONTRAST REASON FOR EXAM: Female, 50 years old. Lung cancer. Postchemotherapy/radiation. Evaluate spondylosis to treatment. Current smoker with 38 pack-year history. RADIATION DOSAGE (If Supplied By Facility): CTDIvol = ( 13.66 ) mGy, DLP = ( 803.14 ) mGycm TECHNIQUE: Transaxial imaging was performed following intravenous administration of IV 100mL Isovue-300. Multiplanar coronal and sagittal images were reformatted. Individualized dose optimization techniques were used for this CT. COMPARISON: Chest, 07/27/2020. CT of the chest, 03/18/2020. CT of the abdomen, 03/18/2020 FINDINGS: CHEST There is hyperexpansion and emphysematous changes of the right lung without mass or infiltrate. There is volume loss in the left lung with mediastinal shift of the left. There is fluid seen in the left lung apex with collapsed lung. There is associated bronchiectasis in the remaining upper lobe. The lingula and lower lobe are grossly normal. Normal heart and pericardium. Normal mediastinum. Normal hilar regions. Normal unenhanced pulmonary arteries. Normal aorta arch and descending thoracic aorta. Normal osseous structures. ABDOMEN There are small scattered cysts within an otherwise normal liver no evidence for enhancing mass.. Normal gallbladder and extrahepatic biliary system. Normal spleen. Normal pancreas. Normal bilateral adrenal glands. Normal right kidney. Normal left kidney. Normal visualized stomach. Normal visualized small intestine. Normal visualized colon. There is diffuse atherosclerotic calcification of the abdominal aorta with elongation and tortuosity, but without a demonstrated aneurysm. Normal inferior vena cava. Normal retroperitoneum. Normal abdominal wall. Degenerative changes lower lumbar spine CT/CT Chest AND Abd W/ Contrast IMPRESSION: 1. No evidence of local extension or metastatic disease. 2. No major interval change when compared to the prior study. Electronically Signed: Shaw Tello DO at 16:33 EDT Tel [phone], Service support ,
[2020-10-01 13:25] LABS: CREATININE FINGERSTICK 0.9 mg/dL (0.55-1.02); EGFR FINGERSTICK > 60.0000 mL/min (>60)
== END ==
PROVIDERS: PCP Family Medicine; Referring Provider Internal Medicine Hematology & Oncology; Visit Provider Internal Medicine Hematology & Oncology
DX: C34.92 Malignant neoplasm of unspecified part of left bronchus or lung (principal); C77.9 Secondary and unspecified malignant neoplasm of lymph node, unspecified; R91.8 Other nonspecific abnormal finding of lung field
CPT/HCPCS: 71260; 74160; Q9967

== ENCOUNTER → 2020-10-22 12:26 | Outpatient (CLI) | payer MEDICAID, SELFPAY ==
[2020-08-19 08:31] VITALS: BMI 30.8
[2020-10-12 15:13] VITALS: BMI 31.0
[2020-10-22 13:25] VITALS: PULSE 100; PULSE 103; PULSE 87; PULSE 90; PULSE 91; PULSE 92; PULSE 98; O2SAT 94; O2SAT 95; O2SAT 96; O2SAT 97
--- NOTE | 2020-10-23 13:39 | PCM.PSN.6M ---
PSN 6 Minute Walk Test 6 Minute Walk Test 6 Minute Walk Test: 6 Minute Walk Test PSN:6-Minute Walk Test Start: 10/22/20 13:25 Freq: Status: Active Protocol: RESP.6MINW Document 10/22/20 13:25 [facility] (Rec: 10/22/20 13:30 [facility] [id number]) 6 Minute Walk Test Date Performed 10/22/20 Time Performed 13:00 Height 5 ft 1 in Weight: 72.575 kg Weight in Pounds 160.[address]: Chavez Cohn Assistive device used: None Pre-test Oxygen Delivery Method Room Air Pulse Ox (%) 97 Pulse Rate (60-100 beats/min) 87 Dyspnea Laura Scale (0-10) 0 1st minute Oxygen Delivery Method Room Air Pulse Ox (%) 96 Pulse Rate (60-100 beats/min) 91 Dyspnea Laura Scale (0-10) 1 Number of Rests Taken 0 2nd minute Oxygen Delivery Method Room Air Pulse Ox (%) 94 Pulse Rate (60-100 beats/min) 92 Dyspnea Laura Scale (0-10) 2 Number of Rests Taken 0 Reported Symptoms Increased Work of Breathing 3rd minute Oxygen Delivery Method Room Air Pulse Ox (%) 96 Pulse Rate (60-100 beats/min) 92 Dyspnea Laura Scale (0-10) 3 Number of Rests Taken 0 Reported Symptoms Increased Work of Breathing 4th minute Oxygen Delivery Method Room Air Pulse Ox (%) 95 Pulse Rate (60-100 beats/min) 98 Dyspnea Laura Scale (0-10) 3 Number of Rests Taken 1 Reported Symptoms Increased Work of Breathing 5th minute Oxygen Delivery Method Room Air Pulse Ox (%) 94 Pulse Rate (60-100 beats/min) 100 Dyspnea Laura Scale (0-10) 3 Number of Rests Taken 0 Reported Symptoms Increased Work of Breathing 6th minute Oxygen Delivery Method Room Air Pulse Ox (%) 94 Pulse Rate (60-100 beats/min) 103 H Dyspnea Laura Scale (0-10) 3 Number of Rests Taken 0 Reported Symptoms Increased Work of Breathing Post-test Oxygen Delivery Method Room Air Pulse Ox (%) 97 Pulse Rate (60-100 beats/min) 90 Dyspnea Laura Scale (0-10) 0 Full Laps Walked 8 Partial Lap, Number of Tiles Walked 47 Total Distance Walked (ft) 519 Interpretation Interpretation: The patient ambulated 519 feet over the course of 6 minutes beginning on room air without assistive devices. Pretesting oxygen saturation was noted to be 97% on room air. With ambulation, the zhou oxygen saturation was 94%. Although there was evidence of impaired walk distance, there was no significant exertional oxygen desaturation. Recommendations Recommendations: There is no indication for the use of supplemental oxygen at this time.
[2020-11-21 21:08] LABS: HPV Reflexed? YES, CHARGE PATIENT
== END ==
PROVIDERS: PCP Family Medicine; Referring Provider Internal Medicine Critical Care Medicine; Visit Provider Internal Medicine Critical Care Medicine
DX: Z12.4 Encounter for screening for malignant neoplasm of cervix (principal); R94.2 Abnormal results of pulmonary function studies; Z70.8 Other sex counseling; R30.0 Dysuria; R10.9 Unspecified abdominal pain
CPT/HCPCS: 87070; 87086; 87088; 87186; 87205; 87491; 87591; 87624; 88175; 94618; G0145

== ENCOUNTER → 2020-10-22 | Outpatient (CLI) | payer MEDICAID, SELFPAY ==
[2020-10-12 15:13] VITALS: BMI 31.0
== END | disposition home or self-care (01) ==
LOC: LABSPEC 10:55
PROVIDERS: PCP Family Medicine; Visit Provider Family Medicine
DX: R30.0 Dysuria (principal); R10.9 Unspecified abdominal pain
CPT/HCPCS: 87070; 87086; 87205

== ENCOUNTER → 2020-11-02 17:02 | Outpatient (CLI) | payer MEDICAID, SELFPAY ==
--- NOTE | 2020-11-02 17:04 | RAD_ITS ---
INDICATION: cough EXAMINATION/TECHNIQUE: X-RAY - XR Chest 2 Views COMPARISON: 07/27/2020. FINDINGS: Unchanged postsurgical changes of the left hemithorax with near total opacification of the left lung. No abnormalities of the right lung. The cardiomediastinal silhouette is obscured. No pleural effusion or pneumothorax. No acute osseous abnormalities. RAD/Chest PA and Lateral IMPRESSION: Stable exam when compared to prior chest radiograph on 07/27/2020. No acute abnormalities. Electronically Signed: Brien Serrano MD at 17:34 EDT Tel , Service support ,
== END ==
PROVIDERS: PCP Family Medicine; Referring Provider Nurse Practitioner Family; Visit Provider Nurse Practitioner Family
DX: R05 Cough (principal)
CPT/HCPCS: 71046